=== PATIENT | female | born 1980 | race Native Hawaiian/Other Pacific Islander ===

== ENCOUNTER 2016-12-07 11:34 | Outpatient (CLI) | payer OTHER ==
[~2016-12-07 11:34] MED LIST: CLARITIN10 M1 PO; HYDR25TA60 PO; LEVO0.0723 PO; METO25TA2 PO
== END 2016-12-07 23:03 | disposition home or self-care (01) ==
LOC: RAD 11:34
DX: Z79.899 Other long term (current) drug therapy (principal); Z51.81 Encounter for therapeutic drug level monitoring

== ENCOUNTER 2017-02-11 17:07 | Outpatient (CLI) | payer OTHER | END 2017-02-11 19:52 | disposition home or self-care (01) | LOC: LABW 17:07 | DX: M32.8 Other forms of systemic lupus erythematosus (principal) | CPT/HCPCS: 87086; 87088 ==

== ENCOUNTER 2017-05-12 16:27 | Outpatient (CLI) | payer OTHER | END 2017-05-12 19:37 | disposition home or self-care (01) | LOC: RAD 16:27 | DX: M25.562 Pain in left knee (principal) ==

== ENCOUNTER 2017-07-02 12:40 | Outpatient (CLI) | payer OTHER | END 2017-07-02 13:40 | disposition home or self-care (01) | LOC: LAB 12:40 | DX: N39.0 Urinary tract infection, site not specified (principal) | CPT/HCPCS: 81000; 87077; 87086; 87088; 87186 ==

== ENCOUNTER 2017-12-21 16:38 | Outpatient (CLI) | payer OTHER ==
[2017-12-21 17:10] LABS: PLATELET COUNT 158 K/uL (152-353)
== END 2017-12-21 20:09 | disposition home or self-care (01) ==
LOC: LABW 16:38
PROVIDERS: Nurse Practitioner Family
DX: J40 Bronchitis, not specified as acute or chronic (principal)
CPT/HCPCS: 36415; 85027

== ENCOUNTER 2018-03-31 15:56 | Outpatient (CLI) | payer OTHER | END 2018-03-31 23:39 | disposition home or self-care (01) | LOC: LABW 15:56 | DX: R19.7 Diarrhea, unspecified (principal) | CPT/HCPCS: 82272; 87015; 87045; 87205; 87324; 87328; 87329; 87449; 87899 ==

== ENCOUNTER 2018-07-27 16:29 | Outpatient (CLI) | payer OTHER | END 2018-07-27 21:48 | disposition home or self-care (01) | LOC: RAD 16:29 | DX: M17.0 Bilateral primary osteoarthritis of knee (principal) ==

== ENCOUNTER 2019-02-10 20:08 | Emergency (ER) | payer OTHER ==
[~2019-02-10] VITALS: Ht 154.9 cm; Wt 166.9 kg
[2019-02-10 20:20] VITALS: TEMP 97.6
[2019-02-10 21:08] LABS: PLATELET COUNT 136 K/uL (152-353)
[2019-02-10 21:20] LABS: POTASSIUM 3.7 mmol/L (3.6-5.2)
[2019-02-10 21:40] LABS: PARTIAL THROMBOPLASTIN TIME 19.9 SECONDS (24.5-33.6)
[2019-02-11 00:36] VITALS: BP 141/67
== END 2019-02-11 00:36 | disposition home or self-care (01) ==
LOC: ED 20:08
PROVIDERS: Emergency Medicine
DX: J01.90 Acute sinusitis, unspecified (principal); Z98.890 Other specified postprocedural states
CPT/HCPCS: 36415; 80053; 85027; 85379; 85610; 85730; 99283; Q9963

== ENCOUNTER 2019-07-20 12:58 | Outpatient (CLI) | payer OTHER | END 2019-07-20 23:24 | disposition home or self-care (01) | LOC: RAD 12:58 | DX: M06.09 Rheumatoid arthritis without rheumatoid factor, multiple sites (principal) ==

== ENCOUNTER 2021-03-07 07:46 | Outpatient (CLI) | payer OTHER | END 2021-03-07 20:51 | disposition home or self-care (01) | LOC: US 07:46 | PROVIDERS: ATTEND Nurse Practitioner Adult Health | DX: D69.6 Thrombocytopenia, unspecified (principal); N83.01 Follicular cyst of right ovary; D39.8 Neoplasm of uncertain behavior of other specified female genital organs; T81.49XA Infection following a procedure, other surgical site, initial encounter; Z48.89 Encounter for other specified surgical aftercare; K66.0 Peritoneal adhesions (postprocedural) (postinfection); M32.8 Other forms of systemic lupus erythematosus; R16.2 Hepatomegaly with splenomegaly, not elsewhere classified ==

== ENCOUNTER 2021-04-24 16:39 | Outpatient (CLI) | payer OTHER | END 2021-04-24 22:53 | disposition home or self-care (01) | LOC: LAB 16:39 | PROVIDERS: ATTEND Internal Medicine | DX: R19.7 Diarrhea, unspecified (principal) | CPT/HCPCS: 82272; 83630; 87015; 87045; 87324; 87328; 87329; 87449; 87899 ==

== ENCOUNTER 2021-11-27 11:59 | Outpatient (CLI) | payer OTHER ==
[2021-11-27 12:42] LABS: PLATELET COUNT 155 K/uL (152-353)
== END 2021-11-27 19:12 | disposition home or self-care (01) ==
LOC: LABW 11:59
PROVIDERS: ATTEND Internal Medicine
DX: U07.1 COVID-19 (principal)
CPT/HCPCS: 36415; 80053; 85027; 85379; 86140

== ENCOUNTER 2022-07-28 11:36 | Outpatient (CLI) | payer OTHER | END 2022-07-28 19:37 | disposition home or self-care (01) | LOC: LABW 11:36 | PROVIDERS: ATTEND Nurse Practitioner | DX: R10.9 Unspecified abdominal pain (principal); R19.7 Diarrhea, unspecified | CPT/HCPCS: 82272; 83630; 87015; 87045; 87324; 87328; 87329; 87449; 87899 ==

== ENCOUNTER 2022-09-22 18:20 | Outpatient (CLI) | payer OTHER | END 2022-09-22 19:18 | disposition home or self-care (01) | LOC: RAD 18:20 | PROVIDERS: ATTEND Internal Medicine | DX: Z01.818 Encounter for other preprocedural examination (principal) ==